=== PATIENT | male | born 1960 | race American Indian/Alaskan Native ===

== ENCOUNTER 2019-06-12 13:50 | Emergency (ER) | payer SELFPAY ==
--- NOTE | 2019-06-12 14:12 | Event Note ---
ED Screening Note Date of service: 06/12/19 Time: 14:11 ED Screening Note: 59 y/o male comes in for left flank pain that radiates to front. This initial assessment/diagnostic orders/clinical plan/treatment(s) is/are subject to change based on patients health status, clinical progression and re- assessment by fellow clinical providers in the ED. Further treatment and workup at subsequent clinical providers discretion. Patient/guardian urged not to elope from the ED as their condition may be serious if not clinically assessed and managed. Initial orders include:
[2019-06-12] MEDS ORDERED: NORCO 10/325 PO ONE (15:13)
--- NOTE | 2019-06-12 15:34 | Cat Scan Report ---
CT ABDOMEN AND PELVIS WITHOUT CONTRAST INDICATION / CLINICAL INFORMATION: left flank pain.. TECHNIQUE: Axial CT images were obtained through the abdomen and pelvis without IV contrast. All CT scans at [facility] location are performed using CT dose reduction for ALARA by means of automated exposure control. COMPARISON: None available. FINDINGS: LOWER CHEST: No significant abnormality. LIVER: No significant abnormality. GALLBLADDER: Removed BILE DUCTS: No significant abnormality. PANCREAS: No significant abnormality. SPLEEN: No significant abnormality. ADRENALS: No significant abnormality. RIGHT KIDNEY and URETER: No significant abnormality. LEFT KIDNEY and URETER: Moderate left hydroureteronephrosis secondary to an obstructive 6 mm stone at the left ureterovesical junction. STOMACH and SMALL BOWEL: No significant abnormality. COLON: No significant abnormality. APPENDIX: No significant abnormality. PERITONEUM: No free fluid. No free air. No fluid collection. LYMPH NODES: No significant adenopathy. AORTA and ARTERIES: No significant abnormality. IVC and VEINS: No significant abnormality. URINARY BLADDER: No significant abnormality. REPRODUCTIVE ORGANS: No significant abnormality. ADDITIONAL FINDINGS: None. SKELETAL SYSTEM: No significant abnormality. IMPRESSION: Obstructive 6 mm stone at the left ureterovesical junction, as above. Signer Name: Nacho Mendoza MD Signed: 06/12/2019 3:29 PM Workstation Name: [id number]
[2019-06-12] MEDS ORDERED: NACL 0.9% 1000 ML 1,000 ML IV ONE (16:10)
[2019-06-12] MEDS ORDERED: TORADOL IV ONE (16:10)
[2019-06-12] MEDS ORDERED: FLOMAX PO ONE (16:11)
[2019-06-12 16:27] LABS: Bilirubin,Urine NEG (Negative); Blood,Urine SM (Negative); Color,Urine Colorless (Yellow); Protein,Urine <15 mg/dL mg/dL (Negative); Urobilinogen,Urine < 2.0 mg/dL (<2.0)
[2019-06-12 16:29] LABS: WBC,Urine < 1.0 /HPF (0.0-6.0)
[2019-06-12 16:29] LABS: Basophils # (Auto) 0.1 K/mm3 (0.0-0.1); Basophils % (Auto) 0.5 % (0.0-1.8); Eosinophils % (Auto) 0.2 % (0.0-4.3); Hematocrit 45.2 % (35.5-45.6); Hemoglobin 15.7 gm/dl (11.8-15.2); Lymphocytes # (Auto) 2.3 K/mm3 (1.2-5.4); Mean Corpuscular HGB Conc 35 % (32-34); Mean Corpuscular Volume 82 fl (84-94); Monocytes # (Auto) 0.9 K/mm3 (0.0-0.8); Monocytes % (Auto) 7.4 % (0.0-7.3); Platelet Count 262 K/mm3 (140-440); Red Blood Count 5.49 M/mm3 (3.65-5.03); Red Cell Distribution Width 12.9 % (13.2-15.2)
--- NOTE | 2019-06-12 16:41 | Emergency Department Report ---
ED Male HPI - General Chief complaint: Urogenital-Male Stated complaint: L SIDE PAIN Time Seen by Provider: 06/12/19 15:12 Source: patient Mode of arrival: Ambulatory Limitations: No Limitations - History of Present Illness Initial comments: 59-year-old male presents to ED with left flank pain radiating to groin for the past week, worse today. Rates pain today is 10 out of 10, sharp, without nausea or vomiting. No fever or chills or night sweats. Mild urinary hesitancy. -: Gradual - Related Data Previous Rx's Medication Instructions Recorded Last Taken Type HYDROcodone/APAP 10-325 [[place] 1 each PO Q8HR PRN #15 tablet 06/12/19 Unknown Rx 10/325] Tamsulosin [Flomax] 0.4 mg PO QDAY 20 Days #20 cap 06/12/19 Unknown Rx cephALEXin [Keflex] 500 mg PO Q12HR 7 Days #14 cap 06/12/19 Unknown Rx Allergies Allergy/AdvReac Type Severity Reaction Status Date / Time No Known Allergies Allergy Unverified 06/12/19 14:11 ED Review of Systems ROS: Stated complaint: L SIDE PAIN Other details as noted in HPI Comment: All other systems reviewed and negative Respiratory: denies: cough Cardiovascular: denies: chest pain Endocrine: denies: excessive sweating Gastrointestinal: abdominal pain, nausea Genitourinary: urgency. denies: hematuria Musculoskeletal: denies: back pain ED Past Medical Hx - Past Medical History Hx Hypertension: Yes - Surgical History Past Surgical History?: No - Social History Smoking Status: Never Smoker Substance Use Type: None - Medications Home Medications: Home Medications Medication Instructions Recorded Confirmed Last Taken Type HYDROcodone/APAP 10-325 [[place] 1 each PO Q8HR PRN #15 tablet 06/12/19 Unknown Rx 10/325] Tamsulosin [Flomax] 0.4 mg PO QDAY 20 Days #20 cap 06/12/19 Unknown Rx cephALEXin [Keflex] 500 mg PO Q12HR 7 Days #14 cap 06/12/19 Unknown Rx ED Physical Exam - General Limitations: No Limitations General appearance: alert, in no apparent distress - Head Head exam: Present: atraumatic, normocephalic - Eye Eye exam: Present: normal appearance, PERRL, EOMI Pupils: Present: normal accommodation - ENT ENT exam: Present: normal exam - Neck Neck exam: Present: normal inspection - Respiratory Respiratory exam: Present: normal lung sounds bilaterally - Cardiovascular Cardiovascular Exam: Present: regular rate, normal rhythm - GI/Abdominal GI/Abdominal exam: Present: soft - Extremities Exam Extremities exam: Present: normal inspection - Back Exam Back exam: Present: CVA tenderness (L) - Neurological Exam Neurological exam: Present: alert, oriented X3 - Psychiatric Psychiatric exam: Present: normal affect ED Course Vital Signs 06/12/19 06/12/19 06/12/19 14:09 16:37 16:41 Temperature 98.2 F Pulse Rate 63 Respiratory 18 18 18 Rate Blood Pressure 162/73 O2 Sat by Pulse Oximetry 06/12/19 17:23 Temperature Pulse Rate 64 Respiratory Rate Blood Pressure 162/74 O2 Sat by Pulse 98 Oximetry ED Medical Decision Making - Lab Data Result diagrams: 06/12/19 16:19 06/12/19 16:19 - Medical Decision Making Left UVJ stone [address], pain controlled in ED, no UTI, no fever, wants to go home. advised follow-up the urologist, voiced understanding. Critical care attestation.: If time is entered above; I have spent that time in minutes in the direct care of this critically ill patient, excluding procedure time. ED Disposition Clinical Impression: Left ureteral stone Disposition: DC-01 TO HOME OR SELFCARE Is pt being admited?: No Does the pt Need Aspirin: No Condition: Stable Instructions: Kidney Stones (ED) Prescriptions: Tamsulosin [Flomax] 0.4 mg PO QDAY 20 Days #20 cap cephALEXin [Keflex] 500 mg PO Q12HR 7 Days #14 cap HYDROcodone/APAP 10-325 [[place] 10/325] 1 each PO Q8HR PRN #15 tablet PRN Reason: Pain Referrals: HERBERTH JAIN MD [Staff Physician] - 3-5 Days
[2019-06-12 16:59] LABS: Alanine Aminotransferase 49 units/L (7-56); Albumin 4.5 g/dL (3.9-5); BUN/Creatinine Ratio 19; Blood Urea Nitrogen 23 mg/dL (9-20); Calcium 9.6 mg/dL (8.4-10.2); Hemolysis Index 5
[2019-06-12 17:43] VITALS: BP 162/74
== END 2019-06-12 17:20 | disposition home or self-care (01) ==
LOC: ED 13:50
DX: N20.0 Calculus of kidney (principal)
CPT/HCPCS: 36415; 74176; 80053; 81001; 85025; 96374; 99284; J1885; J7030